=== PATIENT | male | born 1960 | race Caucasian/White ===

== ENCOUNTER 2024-05-15 19:35 | Emergency (ER) | payer MEDICARE, MEDICAID ==
[2024-05-15 20:15] LABS: PROTHROMBIN TIME 10.6 sec (9.2-10.6)
[2024-05-15 20:21] LABS: CALCIUM 9.2 mg/dL (8.5-10.1); CREATININE 1.2 mg/dL (0.8-1.3); EST CRCL DRUG DOSING (CG) 58.58 mL/min; POTASSIUM,K 3.7 mmol/L (3.6-5.2)
[2024-05-15 20:23] LABS: ANION GAP 15.7 mmol/L (5.0-14.0)
[2024-05-15 20:37] LABS: BASOPHILS ABSOLUTE AUTO 0.09 K/uL (0.00-0.10); BASOPHILS PERCENT AUTO 0.9 % (0.1-1.3); EOSINOPHILS ABSOLUTE AUTO 0.24 K/uL (0.00-0.40); EOSINOPHILS PERCENT AUTO 2.4 % (0.0-5.4); HEMATOCRIT 39.2 % (38.4-49.7); HEMOGLOBIN 13.8 g/dL (12.9-16.9); IMMATURE GRAN ABSOLUTE AUTO 0.08 K/uL (0.00-0.23); IMMATURE GRAN PERCENT AUTO 0.8 % (0.0-0.7); LYMPHOCYTES ABSOLUTE AUTO 3.21 K/uL (0.8-3.3); LYMPHOCYTES PERCENT AUTO 31.7 % (11.4-47.7); MEAN CORPUSCULAR HGB CONC 35.2 g/dL (31.6-35.5); MEAN CORPUSCULAR VOLUME 93.8 fL (81.4-99.0); MONOCYTES ABSOLUTE AUTO 0.62 K/uL (0.20-0.90); MONOCYTES PERCENT AUTO 6.1 % (3.3-12.6); NEUTROPHILS PERCENT AUTO 58.1 % (40.0-78.1); PLATELET COUNT,PLT 180 K/uL (130-375); RED BLOOD CELL COUNT 4.18 M/uL (4.14-5.76); WHITE BLOOD CELL COUNT,WBC 10.1 K/uL (3.2-11.0)
[2024-05-15 21:10] LABS: AMPHETAMINES SCREEN, URINE NEGATIVE (NEGATIVE); BARBITURATE SCREEN,URINE NEGATIVE (NEGATIVE); BENZODIAZEPINES SCREEN,URINE NEGATIVE (NEGATIVE); METHADONE SCREEN, URINE NEGATIVE (NEGATIVE); METHAMPHETAMINES SCREEN, URINE NEGATIVE (NEGATIVE); OXYCODONE SCREEN,URINE NEGATIVE (NEGATIVE); PROPOXYPHENE SCREEN,URINE NEGATIVE (NEGATIVE); THC SCREEN,URINE 50 NG/ML NEGATIVE (NEGATIVE)
== END 2024-05-16 09:28 | disposition home or self-care (01) ==
LOC: JP.ED 19:35
DX: S00.03XA Contusion of scalp, initial encounter (principal); Z79.899 Other long term (current) drug therapy; W19.XXXA Unspecified fall, initial encounter; W22.8XXA Striking against or struck by other objects, initial encounter
CPT/HCPCS: 36415; 70450; 80048; 80305-QW; 80307; 85025; 85610; 99284